=== PATIENT | female | born 1975 | race Caucasian/White ===

== ENCOUNTER 2016-12-28 23:13 | Emergency (ER) | payer OTHER ==
[~2016-12-28] VITALS: Ht 162.6 cm; Wt 127.0 kg
[~2016-12-28 23:13] MED LIST: ALBUTEROL0.09 MG/A2 INH; ANT12.5 PO; DUONEB3 ML NEB; ECO325 PO; FLEXERIL10 MG PO; LIPI10 PO; MOTRIN800 MG PO; NOR10T PO; PROVENTIL0.09 MG/A1; ZOC10 PO
[2016-12-29 00:59] LABS: BASOPHIL % 0.3 % (0-2); PLATELET COUNT 246 x10^3mcL (130-400)
[2016-12-29 01:04] LABS: RED CELL DISTRIBUTION WIDTH 14.9 % (11.5-14.5)
[2016-12-29 01:07] LABS: CALCIUM 8.4 mg/dL (8.5-10.1); CARBON DIOXIDE 29.3 mmol/L (21-32); CHLORIDE SERUM 103 mmol/L (98-107); GFR1 > 60 mL/min; GLUCOSE SERUM 91 mg/dL (74-106); POTASSIUM SERUM 3.9 mmol/L (3.5-5.1); SODIUM SERUM 140 mmol/L (136-145)
[2016-12-29 01:23] LABS: ALBUMIN 3.8 g/dL (3.4-5.0); ALKALINE PHOSPHATASE 103 U/L (46-116); ALT/SGPT 27 U/L (14-59); AST/SGOT 21 U/L (15-37); BILIRUBIN TOTAL 0.51 mg/dL (0.20-1.00); TOTAL PROTEIN, SERUM 7.9 g/dL (6.4-8.2)
[2016-12-29 01:29] LABS: CK-MB 0.8 ng/mL (0-3.6)
[2016-12-29 03:07] VITALS: BP 130/77
== END 2016-12-29 03:07 | disposition home or self-care (01) ==
LOC: ED 23:13
PROVIDERS: Emergency Medicine
DX: R07.9 Chest pain, unspecified (principal); E78.00 Pure hypercholesterolemia, unspecified; G89.29 Other chronic pain; J45.909 Unspecified asthma, uncomplicated; Z91.013 Allergy to seafood
CPT/HCPCS: 83880

== ENCOUNTER 2017-02-09 17:47 | Inpatient (IN) | payer OTHER ==
[~2017-02-09] VITALS: Ht 162.6 cm; Wt 149.7 kg
[2017-02-09 19:10] LABS: UA SPECIFIC GRAVITY 1.025 (1.005-1.035); microscopic required? YES; urine erythrocyte 1+ (NEGATIVE)
[2017-02-09 19:13] LABS: BASOPHIL % 0.4 % (0-2); PLATELET COUNT 235 x10^3mcL (130-400)
[2017-02-09 19:18] LABS: CALCIUM 8.5 mg/dL (8.5-10.1); CARBON DIOXIDE 28.8 mmol/L (21-32); CHLORIDE SERUM 107 mmol/L (98-107); CREATININE SERUM 1.1 mg/dL (0.6-1.0); GFR1 58 mL/min; GLUCOSE SERUM 111 mg/dL (74-106); POTASSIUM SERUM 3.7 mmol/L (3.5-5.1); SODIUM SERUM 145 mmol/L (136-145)
[2017-02-09 19:19] LABS: RED CELL DISTRIBUTION WIDTH 15.1 % (11.5-14.5)
[2017-02-09 19:23] LABS: ALBUMIN 3.5 g/dL (3.4-5.0); ALKALINE PHOSPHATASE 106 U/L (46-116); ALT/SGPT 38 U/L (14-59); AST/SGOT 26 U/L (15-37); BILIRUBIN TOTAL 0.5 mg/dL (0.20-1.00); TOTAL PROTEIN, SERUM 7.4 g/dL (6.4-8.2)
[2017-02-09 19:26] LABS: AMPHETAMINE QUAL UR NONE DETECTED (NEG <=1000)
[2017-02-09 21:23] VITALS: BP 116/57
[2017-02-09 21:33] LABS: CHOLESTEROL/HDL RATIO 3.5; PHOSPHOROUS 3.7 mg/dL (2.5-4.9)
[2017-02-09 21:38] LABS: T3 TOTAL 1.15 ng/mL
[2017-02-09 21:39] LABS: FREE T4 0.81 ng/dL (0.76-1.46); FREE THYROXINE INDEX 2.5 ug/dL (1.4-4.5)
[2017-02-10 05:56] VITALS: BP 116/57
[2017-02-10 06:01] VITALS: BP 114/65
[2017-02-10 07:22] LABS: CARBON DIOXIDE 25.4 mmol/L (21-32); CHLORIDE SERUM 108 mmol/L (98-107); CREATININE SERUM 0.9 mg/dL (0.6-1.0); GFR1 > 60 mL/min; GLUCOSE SERUM 91 mg/dL (74-106); PHOSPHOROUS 3.5 mg/dL (2.5-4.9); POTASSIUM SERUM 3.8 mmol/L (3.5-5.1); SODIUM SERUM 143 mmol/L (136-145)
[2017-02-10 07:23] LABS: BASOPHIL % 0.5 % (0-2); PLATELET COUNT 214 x10^3mcL (130-400)
[2017-02-10 07:25] LABS: RED CELL DISTRIBUTION WIDTH 14.8 % (11.5-14.5)
[2017-02-10 10:03] VITALS: BP 110/65
[2017-02-10 14:02] VITALS: BP 122/68
[2017-02-10 17:43] VITALS: BP 124/88
[2017-02-10 22:37] VITALS: BP 121/69
[2017-02-11 06:55] VITALS: BP 109/62
[2017-02-11 07:11] LABS: CALCIUM 8.2 mg/dL (8.5-10.1); CARBON DIOXIDE 25.5 mmol/L (21-32); CHLORIDE SERUM 104 mmol/L (98-107); GFR1 > 60 mL/min; GLUCOSE SERUM 88 mg/dL (74-106); MAGNESIUM 1.8 mg/dL (1.8-2.4); PHOSPHOROUS 4.1 mg/dL (2.5-4.9); POTASSIUM SERUM 3.7 mmol/L (3.5-5.1); SODIUM SERUM 139 mmol/L (136-145)
[2017-02-11 07:16] LABS: BASOPHIL % 0.9 % (0-2); PLATELET COUNT 202 x10^3mcL (130-400)
[2017-02-11 10:44] VITALS: BP 120/83
[2017-02-11 14:10] VITALS: BP 135/73
[2017-02-11 17:00] VITALS: BP 117/76
[2017-02-11 22:21] VITALS: BP 115/63
[2017-02-12 05:56] LABS: BASOPHIL % 0.4 % (0-2); PLATELET COUNT 225 x10^3mcL (130-400)
[2017-02-12 05:58] VITALS: BP 99/58
[2017-02-12 06:10] LABS: CALCIUM 8.1 mg/dL (8.5-10.1); CREATININE SERUM 1.2 mg/dL (0.6-1.0); POTASSIUM SERUM 3.8 mmol/L (3.5-5.1)
[2017-02-12 06:47] LABS: RED CELL DISTRIBUTION WIDTH 14.9 % (11.5-14.5)
[2017-02-12 09:16] VITALS: BP 108/71
[2017-02-12] MEDS ORDERED: ZOLOFT50 MG PO (11:56)
[2017-02-12] MEDS ORDERED: LEVAQUIN750 MG PO (11:58)
[2017-02-12] MEDS ORDERED: CLEOCIN HCL300 MG PO (11:59)
[2017-02-12] MEDS ORDERED: LAC PO (11:59)
[2017-02-12] MEDS ORDERED: KEP500 PO (12:00)
[2017-02-12] MEDS ORDERED: ESGIC CAPSULE1 EACH PO ×2 (12:01→14:01)
[2017-02-12 13:27] VITALS: BP 108/71
== END 2017-02-12 15:45 | disposition home health service (06) | DRG 53 ==
LOC: ED 17:47 → DU 19:47
PROVIDERS: Emergency Medicine; ADMIT Family Medicine
DX: R56.9 Unspecified convulsions (principal); I69.351 Hemiplegia and hemiparesis following cerebral infarction affecting right dominant side; N18.3 Chronic kidney disease, stage 3 (moderate); J45.909 Unspecified asthma, uncomplicated; D64.9 Anemia, unspecified; E78.00 Pure hypercholesterolemia, unspecified; E66.01 Morbid (severe) obesity due to excess calories; E78.1 Pure hyperglyceridemia; Z68.43 Body mass index [BMI] 50.0-59.9, adult; Z82.3 Family history of stroke; Z82.49 Family history of ischemic heart disease and other diseases of the circulatory system; Z82.5 Family history of asthma and other chronic lower respiratory diseases; Z91.013 Allergy to seafood
CPT/HCPCS: 80307; 82962; 83880; 84439; 92610-GN; 94150; 97110-GP; 97116-GP; 97530-GP; C9113; G0480; J1885; J1956; J2270; J3490; J7030; J7620; J8597; Q0092

== ENCOUNTER 2018-01-10 14:53 | Emergency (ER) | payer OTHER ==
[~2018-01-10] VITALS: Ht 165.1 cm; Wt 120.2 kg
[~2018-01-10 14:53] MED LIST changes: +CLEOCIN HCL300 MG PO; +ESGIC CAPSULE1 EACH PO; +KEP500 PO; +LAC PO; +LEVAQUIN750 MG PO; +ZOLOFT50 MG PO
[2018-01-10 14:58] VITALS: Ht 165.1 cm; Wt 120.2 kg
[2018-01-10 16:48] VITALS: BP 142/70
== END 2018-01-10 16:48 | disposition home or self-care (01) ==
LOC: ED 14:53
DX: J45.901 Unspecified asthma with (acute) exacerbation (principal); E78.00 Pure hypercholesterolemia, unspecified; Z91.013 Allergy to seafood
CPT/HCPCS: J1100; Q0092

== ENCOUNTER 2018-02-09 19:12 | Emergency (ER) | payer OTHER ==
[~2018-02-09] VITALS: Ht 165.1 cm; Wt 126.5 kg
[2018-02-09 19:22] VITALS: Ht 165.1 cm; Wt 126.5 kg
[2018-02-09 21:16] LABS: BASOPHIL % 0.3 % (0-2); PLATELET COUNT 263 x10^3mcL (130-400)
[2018-02-09 21:18] LABS: RED CELL DISTRIBUTION WIDTH 18.2 % (11.5-14.5)
[2018-02-09 21:33] LABS: CALCIUM 8.8 mg/dL (8.5-10.1); CARBON DIOXIDE 28.6 mmol/L (21-32); CHLORIDE SERUM 107 mmol/L (98-107); GFR1 > 60 mL/min; GLUCOSE SERUM 99 mg/dL (74-106); POTASSIUM SERUM 3.7 mmol/L (3.5-5.1); SODIUM SERUM 142 mmol/L (136-145)
[2018-02-09 21:39] LABS: microscopic required? YES; urine erythrocyte 2+ (NEGATIVE)
[2018-02-09 21:42] LABS: ALBUMIN 3.5 g/dL (3.4-5.0); ALKALINE PHOSPHATASE 99 U/L (46-116); ALT/SGPT 29 U/L (14-59); AST/SGOT 23 U/L (15-37); BILIRUBIN TOTAL 0.5 mg/dL (0.20-1.00)
[2018-02-09 21:47] LABS: AMPHETAMINE QUAL UR NONE DETECTED (NEG <=1000)
[2018-02-10 00:55] VITALS: BP 146/98
== END 2018-02-10 00:55 | disposition home or self-care (01) ==
LOC: ED 19:12
PROVIDERS: Emergency Medicine
DX: R11.10 Vomiting, unspecified (principal); R19.7 Diarrhea, unspecified; N39.0 Urinary tract infection, site not specified; E86.0 Dehydration; I10 Essential (primary) hypertension; R42 Dizziness and giddiness; R53.1 Weakness
CPT/HCPCS: 83880; J7040

== ENCOUNTER 2019-10-16 19:42 | Emergency (ER) | payer OTHER, MEDICAID ==
[~2019-10-16] VITALS: Ht 162.6 cm; Wt 107.0 kg
[2019-10-16 19:54] VITALS: BP 164/83; Ht 162.6 cm; Wt 107.0 kg
== END 2019-10-16 23:08 | disposition left against medical advice (07) ==
LOC: ED 19:42
DX: R07.89 Other chest pain (principal); R53.1 Weakness; J45.909 Unspecified asthma, uncomplicated; E78.00 Pure hypercholesterolemia, unspecified; G89.29 Other chronic pain; M54.9 Dorsalgia, unspecified; M54.2 Cervicalgia; Z91.013 Allergy to seafood

== ENCOUNTER 2019-11-03 17:36 | Emergency (ER) | payer OTHER, MEDICAID ==
[~2019-11-03] VITALS: Ht 167.6 cm; Wt 107.5 kg
[2019-11-03 18:02] VITALS: Ht 167.6 cm; Wt 107.5 kg
[2019-11-03 20:16] VITALS: BP 121/85
== END 2019-11-03 21:31 | disposition home or self-care (01) ==
LOC: ED 17:36
DX: T78.49XA Other allergy, initial encounter (principal); J44.9 Chronic obstructive pulmonary disease, unspecified; I10 Essential (primary) hypertension; E78.00 Pure hypercholesterolemia, unspecified; G89.29 Other chronic pain; Z86.73 Personal history of transient ischemic attack (TIA), and cerebral infarction without residual deficits; Z91.013 Allergy to seafood; X58.XXXA Exposure to other specified factors, initial encounter
CPT/HCPCS: J1200; J2930; J3490